=== PATIENT | male | born 1975 | race Caucasian/White ===

== ENCOUNTER 2022-09-27 20:21 | Emergency (ER) | payer SELFPAY ==
[~2022-09-27] VITALS: Ht 187.9 cm; Wt 131.5 kg
[2022-09-27 20:23] VITALS: BP 141/98
[2022-09-27 20:41] LABS: BASOPHILS # (AUTO) 0.1 10^3/uL (0.0-0.1); BASOPHILS % (AUTO) 1 % (0-10); EOSINOPHILS # (AUTO) 0.3 10^3/uL (0.0-0.3); EOSINOPHILS % (AUTO) 3 % (0-10); HEMATOCRIT 47 % (40-54); HEMOGLOBIN 16.4 g/dL (13.3-17.7); LYMPHOCYTES # (AUTO) 2.6 10^3/uL (1.0-4.0); LYMPHOCYTES % (AUTO) 30 % (12-44); MEAN CORPUSCULAR HEMOGLOBIN 31 pg (25-34); MEAN CORPUSCULAR HGB CONC 35 g/dL (32-36); MEAN CORPUSCULAR VOLUME 90 fL (80-99); MEAN PLATELET VOLUME 9.7 fL (9.0-12.2); MONOCYTES # (AUTO) 0.6 10^3/uL (0.0-1.0); MONOCYTES % (AUTO) 7 % (0-12); NEUTROPHILS % (AUTO) 58 % (42-75); PLATELET COUNT 318 10^3/uL (130-400); WHITE BLOOD COUNT 8.7 10^3/uL (4.3-11.0)
--- NOTE | 2022-09-27 20:47 | ED Psychosocial ---
General Chief Complaint: Suicidal Ideation Risk Stated Complaint: DEPRESSION Source: patient History of Present Illness Date Seen by Provider: Sep 27, 2022 Time Seen by Provider: 20:21 Initial Comments 47 yo male presenting by [facility] to our stand-alone emergency department here in [facility]. Patient reports that he has a longstanding history of depression and suicidal ideation. He tonight was driving his to get dinner and made the comment that it would be easy to turn the vehicle into traffic and kill himself. He states that that upset her that he was willing to hurt her to hurt himself. He states that upset him because he did not want her to be upset. He had EMS picked him up and tr ansported him to the emergency department. He states he has never been here before. He reports [facility] and a lock down unit at [facility]. He he keeps asking to speak to the [facility] mental health people because he wants to be at [facility] in [facility]. A reports that he told the EMS to take him someplace that could get him mental health assistance and get him admitted to and [facility]. They brought him here to our stand-alone emergency department and I advised him that we did not have any mental health services located here on campus but they have telehealth services that he can speak to over the Internet. He adamantly denies taking any drugs but states he does smoke cigarettes and drink alcohol. He could not tell me how much alcohol he drank today. He states his plan was to drive into traffic to kill himself. He also asked the question of "do you know how many ways there are to hurt yourself or kill yourself" when I asked him what was his plan tonight. Associated Symptoms: suicidal ideation, other (alcohol intoxication) Allergies and Home Medications Allergies Coded Allergies: No Known Drug Allergies (Unverified , 09/27/22) Patient Home Medication List Home Medication List Reviewed: Yes Review of Systems Constitutional: No chills, No fever EENTM: no symptoms reported Respiratory: no symptoms reported Cardiovascular: no symptoms reported Gastrointestinal: no symptoms reported Genitourinary: no symptoms reported Musculoskeletal: no symptoms reported Skin: no symptoms reported Psychiatric/Neurological: See HPI, Depressed, Emotional Problems (suicidal) Past Dpiggbr-Aekejd-Btcgte Hx Patient Social History Tobacco Use?: Yes Tobacco type used: Cigarettes Smoking Status: Current Everyday Smoker Substance use?: No Alcohol Use?: Yes Alcohol type: Beer, Hard Liquor Alcohol Frequency: Couple times a week Past Medical History Surgery/Hospitalization HX: chronic depression, suicidal ideation, alcohol use, tobacco abuse Physical Exam Vital Signs - First Documented 09/27/22 20:23 Temp 37.0 Pulse 114 Resp 16 B/P (MAP) 141/98 (112) Pulse Ox 96 O2 Delivery Room Air Capillary Refill : Height, Weight, BMI Height: '" Weight: lbs. oz. kg; BMI Method: General Appearance: obese, other (disheveled) HEENT: PERRL/EOMI, pharynx normal Neck: non-tender, full range of motion, supple, normal inspection Respiratory: chest non-tender, lungs clear, normal breath sounds, no respiratory distress, no accessory muscle use Cardiovascular: normal peripheral pulses, regular rate, rhythm Gastrointestinal: normal bowel sounds, non tender, soft, no pulsatile mass Extremities: normal range of motion, non-tender, normal capillary refill Neurologic/Psychiatric: alert, oriented x 3 Appearance/Memory: disheveled Behavior/Eye Contact: cooperative (he goes from being cooperative to uncooperative within seconds and has to be redirected frequently) Thoughts/Hallucinations: no apparent hallucination, obsessive (insisting he needs to get to [facility] and speak to [facility] mental health as he wants to be up in [place] at [facility]) Skin: normal color, warm/dry Progress/Results/Core Measures Results/Orders Lab Results Laboratory Tests Test 09/27/22 20:35 09/27/22 20:41 Range/Units White Blood Count 8.7 4.3-11.0 10^3/uL Red Blood Count 5.26 4.30-5.52 10^6/uL Hemoglobin 16.4 13.3-17.7 g/dL Hematocrit 47 40-54 % Mean Corpuscular Volume 90 80-99 fL Mean Corpuscular Hemoglobin 31 25-34 pg Mean Corpuscular Hemoglobin Concent 35 32-36 g/dL Red Cell Distribution Width 12.8 10.0-14.5 % Platelet Count 318 130-400 10^3/uL Mean Platelet Volume 9.7 9.0-12.2 fL Immature Granulocyte % (Auto) 1 % Neutrophils (%) (Auto) 58 42-75 % Lymphocytes (%) (Auto) 30 12-44 % Monocytes (%) (Auto) 7 0-12 % Eosinophils (%) (Auto) 3 0-10 % Basophils (%) (Auto) 1 0-10 % Neutrophils # (Auto) 5.0 1.8-7.8 10^3/uL Lymphocytes # (Auto) 2.6 1.0-4.0 10^3/uL Monocytes # (Auto) 0.6 0.0-1.0 10^3/uL Eosinophils # (Auto) 0.3 0.0-0.3 10^3/uL Basophils # (Auto) 0.1 0.0-0.1 10^3/uL Immature Granulocyte # (Auto) 0.1 0.0-0.1 10^3/uL Sodium Level 138 135-145 MMOL/L Potassium Level 3.5 L 3.6-5.0 MMOL/L Chloride Level 102 98-107 MMOL/L Carbon Dioxide Level 20 L 21-32 MMOL/L Anion Gap 16 H 5-14 MMOL/L Blood Urea Nitrogen 6 L 7-18 MG/DL Creatinine 0.87 0.60-1.30 MG/DL Estimat Glomerular Filtration Rate 107 BUN/Creatinine Ratio 7 Glucose Level 197 H 70-105 MG/DL Calcium Level 8.9 8.5-10.1 MG/DL Corrected Calcium 8.9 8.5-10.1 MG/DL Total Bilirubin 0.3 0.1-1.0 MG/DL Aspartate Amino Transf (AST/SGOT) 40 H 5-34 U/L Alanine Aminotransferase (ALT/SGPT) 40 0-55 U/L Alkaline Phosphatase 100 40-136 U/L Total Protein 6.9 6.4-8.2 GM/DL Albumin 4.0 3.2-4.5 GM/DL Salicylates Level < 0.3 L 5.0-20.0 MG/DL Acetaminophen Level < 10 L 10-30 UG/ML Serum Alcohol 237 H <10 MG/DL Urine Color YELLOW Urine Clarity CLEAR Urine pH 6.0 5-9 Urine Specific [place] 1.010 L 1.016-1.022 Urine Protein NEGATIVE NEGATIVE Urine Glucose (UA) NEGATIVE NEGATIVE Urine Ketones NEGATIVE NEGATIVE Urine Nitrite NEGATIVE NEGATIVE Urine Bilirubin NEGATIVE NEGATIVE Urine Urobilinogen 0.2 < = 1.0 MG/DL Urine Leukocyte Esterase NEGATIVE NEGATIVE Urine RBC (Auto) NEGATIVE NEGATIVE Urine RBC NONE /HPF Urine WBC RARE /HPF Urine Squamous Epithelial Cells RARE /HPF Urine Crystals NONE /LPF Urine Bacteria NEGATIVE /HPF Urine Casts NONE /LPF Urine Mucus NEGATIVE /LPF Urine Culture Indicated NO Urine Opiates Screen NEGATIVE NEGATIVE Urine Oxycodone Screen NEGATIVE NEGATIVE Urine Methadone Screen NEGATIVE NEGATIVE Urine Propoxyphene Screen NEGATIVE NEGATIVE Urine Barbiturates Screen NEGATIVE NEGATIVE Ur Tricyclic Antidepressants Screen NEGATIVE NEGATIVE Urine Phencyclidine Screen NEGATIVE NEGATIVE Urine Amphetamines Screen NEGATIVE NEGATIVE Urine Methamphetamines Screen NEGATIVE NEGATIVE Urine Benzodiazepines Screen NEGATIVE NEGATIVE Urine Cocaine Screen NEGATIVE NEGATIVE Urine Cannabinoids Screen NEGATIVE NEGATIVE My Orders Orders - SKYLER HUERTA MD Ua Culture If Indicated (09/27/22 20:35) Cbc With Automated Diff (09/27/22 20:35) Comprehensive Metabolic Panel (09/27/22 20:35) Alcohol (09/27/22 20:35) Drug Screen Stat (Urine) (09/27/22 20:35) Acetaminophen (09/27/22 20:35) Salicylate (09/27/22 20:35) Ekg Tracing (09/27/22 20:35) Ed Iv/Invasive Line Start (09/27/22 20:35) Monitor-Rhythm Ecg Trace Only (09/27/22 20:35) Bh Status Checks/Observation O Q15M (09/27/22 20:35) Covid 19 Inhouse Test (09/27/22 20:35) Vital Signs/I&O 09/27/22 20:23 Temp 37.0 Pulse 114 Resp 16 B/P (MAP) 141/98 (112) Pulse Ox 96 O2 Delivery Room Air Progress Progress Note #1: Progress Note Potential diagnosis of suicidal ideation, alcohol intoxication, personality disorder, depression. Explained to the patient while we do not have mental health services on site here we will draw blood and urine and obtain an ECG. Then when those results are back we will contact mental health to do a telehealth visit over the internet. He became upset when he heard that we do not have mental health services here at the Emergency Department because he reports he asked EMS to take him to a "place that can give me the help I need". He repeatedly is asking to try and get to [facility] and [facility] to be seen at [facility]. He reports that they had prescribed him medicine for depression and anxiety in the last month or 2 but he did not fill the prescriptions and was waiting on a binder caser to contact him. When a binder caser never contacted him he never followed up with anyone either. He seems to be obsessing about trying to get to [facility] for psychiatric services. He also made the comment that if he was having problems in the future at home he would call 911 to tell them to come pick him up in the driveway because he was going to go shoot himself. And then was asking for the police to be called so that they could come in he would want them to try and take him directly to [facility] to [facility] to be seen. He states that he will walk out of here and is frustrated that there is a process and that it will take time to get him where he can speak with mental health provider. He was told repeatedly that we will get him on the computer to do a web conference with mental health screener but have to get his tests back first and they will want his alcohol level to be down to a certain level before they will speak to him. This also upset him and he keeps saying he wants to talk to somebody now. Progress Note #2: Time: 21:18 Progress Note Patient is medically stable for evaluation. His labs did not indicate any acute electrolyte imbalance or drugs in his system. He did have an alcohol level of 237. We will contact [facility] about mental health screening of the patient however they may not want to screen him until his alcohol level is below a certain level. Patient had insisted that the police be called because he wanted to have them take him from the emergency department here to another facility that would have psychiatric care. He continues to ask about getting to [facility] and [facility]. We continue to try and redirect him that he has to speak with the mental health screener through the telehealth visit before we could try and get him to any other facility. The police are here currently speaking with him trying to help calm him down as he gets agitated about wanting to be at [facility] and [facility]. Progress Note #3: Time: 23:19 Progress Note Patient had calmed down with talking to the police. he is waiting on mental health screening. When contacting [facility] about screening they said he had to have an alcohol level under 100 before they would screen him. After the police had left he was waiting in the room but then came out to ask if he could walk around because his knees hurt. He was advised that he could not walk around in the department because we have several other patients and for their privacy he can not be walking in the halls. He said that was ok and went back in his room but then as staff went to work with other patients he walked out the ED door and left the department. Law Enforcement was contacted again about trying to find him and bring him back until he can be screened with telehealth mental health evaluation. Progress Note #4: Time: 23:55 Progress Note Patient has eloped and law enforcement was contacted to try and find him. They have not brought him back to the ED. If he returns will recheck alcohol to see if he is under 100 for his level so [facility] would consider mental health screening. Initial ECG Impression Date: Sep 27, 2022 Initial ECG Impression Time: 20:39 Initial ECG Rate: 112 Initial ECG Rhythm: S.Tach Initial ECG Comparisson: No Previous ECG Available Comment My personal interpretation of his electrocardiogram shows sinus tachycardia with a heart rate of 112 bpm. He has no acute ST elevation. NC interval 205 ms. QT interval 331 ms with a QTc interval 398 ms. There is no prior tracing available for comparison. Departure Impression Primary Impression: Depression with suicidal ideation Additional Impression: Alcohol intoxication Qualified Codes: F10.920 - Alcohol use, unspecified with intoxication, uncomplicated Disposition: 07 AGAINST MEDICAL ADVICE Condition: Against Medical Advice Departure-Patient Inst. Patient Instructions: OUTPT MENTAL HEALTH SERVICES SKYLER HUERTA MD Sep 27, 2022 20:47
[2022-09-27 20:54] LABS: BILIRUBIN,URINE NEGATIVE (NEGATIVE); CLARITY,URINE CLEAR; COLOR,URINE YELLOW; GLUCOSE, URINE (UA) NEGATIVE (NEGATIVE); KETONES,URINE NEGATIVE (NEGATIVE); LEUKOCYTE ESTERASE ,URINE NEGATIVE (NEGATIVE); NITRITE,URINE NEGATIVE (NEGATIVE); PROTEIN,URINE NEGATIVE (NEGATIVE)
[2022-09-27 21:03] LABS: BACTERIA,URINE NEGATIVE /HPF; WBC,URINE RARE /HPF
[2022-09-27 21:04] LABS: SQUAMOUS EPITHELIAL CELL,UR RARE /HPF
[2022-09-27 21:05] LABS: ACETAMINOPHEN < 10 UG/ML (10-30); ALANINE AMINOTRANSFERASE 40 U/L (0-55); ALKALINE PHOSPHATASE 100 U/L (40-136); BILIRUBIN,TOTAL 0.3 MG/DL (0.1-1.0); BUN/CREATININE RATIO 7; CALCIUM 8.9 MG/DL (8.5-10.1); CARBON DIOXIDE 20 MMOL/L (21-32); CHLORIDE 102 MMOL/L (98-107); CREATININE SERUM 0.87 MG/DL (0.60-1.30); GFR ESTIMATED 107; GLUCOSE 197 MG/DL (70-105); POTASSIUM 3.5 MMOL/L (3.6-5.0); SALICYLATE < 0.3 MG/DL (5.0-20.0); SODIUM 138 MMOL/L (135-145); TOTAL PROTEIN 6.9 GM/DL (6.4-8.2)
[2022-09-27 21:06] LABS: AMPHETAMINE SCREEN, URINE NEGATIVE (NEGATIVE); BARBITURATE SCREEN URINE NEGATIVE (NEGATIVE); BENZODIAZEPINES SCREEN URINE NEGATIVE (NEGATIVE); CANNABINOID SCREEN, URINE NEGATIVE (NEGATIVE); COCAINE SCREEN URINE NEGATIVE (NEGATIVE); METHADONE STAT NEGATIVE (NEGATIVE); OPIATE SCREEN URINE NEGATIVE (NEGATIVE); OXYCODONE STAT NEGATIVE (NEGATIVE); PROPOXYPHENE STAT NEGATIVE (NEGATIVE); TRICYCLIC ANTIDEPRESSANTS SCRE NEGATIVE (NEGATIVE)
== END 2022-09-27 23:20 | disposition left against medical advice (07) ==
LOC: ER FS 20:23
DX: F32.A Depression, unspecified (principal); F10.129 Alcohol abuse with intoxication, unspecified; R00.0 Tachycardia, unspecified; E66.9 Obesity, unspecified; F17.210 Nicotine dependence, cigarettes, uncomplicated; Z28.310 Unvaccinated for COVID-19; Z20.822 Contact with and (suspected) exposure to COVID-19; Z68.37 Body mass index [BMI] 37.0-37.9, adult; Y90.7 Blood alcohol level of 200-239 mg/100 ml
CPT/HCPCS: 36415; 80053; 80306; 81000; 85025; 93005; 99284; G0480 ×3; 80320; 80329